=== PATIENT | female | born 1985 | race Caucasian/White ===

== ENCOUNTER 2018-08-13 21:26 | Outpatient (CLI) | payer MEDICAID ==
[2018-08-13] MEDS ORDERED: TERBUTALINE 1 ML (22:16)
[2018-08-13] MEDS: LACTATED RINGER'S 1,000 ML IV ×2 (22:31→23:02)
[2018-08-13] MEDS: TERBUTALINE 1 MG/ML INJ SC ×2 (22:32→23:24)
[2018-08-13 22:50] LABS: ADD UMIC YES; UR ASCORBIC ACID NEGATIVE (NEGATIVE); UR BACTERIA FEW /HPF (NONE SEEN); UR BILIRUBIN (Dip) NEGATIVE (NEGATIVE); UR BLOOD (Dip) NEGATIVE (NEGATIVE); UR CLARITY SLIGHTLY CLOUDY (CLEAR); UR COLOR YELLOW (YELLOW); UR GLUCOSE (Dip) NEGATIVE (NEGATIVE); UR KETONES (Dip) NEGATIVE (NEGATIVE); UR LEUKOCYTE ESTERASE (Dip) 1+ Leu/ul (NEGATIVE); UR MUCUS FEW /HPF (NONE SEEN); UR NITRITE (Dip) NEGATIVE (NEGATIVE); UR RBC 1 /HPF (0-5); UR SPECIFIC GRAVITY (Dip) 1.012 (1.003-1.030); UR SQUAMOUS EPITHELIAL CELL FEW /HPF (FEW); UR TOTAL PROTEIN (Dip) NEGATIVE (NEGATIVE); UR UROBILINOGEN (Dip) NEGATIVE (NEGATIVE); UR WBC 3 /HPF (0-5)
[2018-08-13 23:06] LABS: RUPTURE FETAL MEMBRANES NEGATIVE (NEGATIVE)
== END 2018-08-14 00:42 | disposition home or self-care (01) ==
LOC: OBT 21:26 → L-D 21:28
DX: O60.03 Preterm labor without delivery, third trimester (principal); Z3A.35 35 weeks gestation of pregnancy
CPT/HCPCS: 36415; 76815; 76818; 81001; 82962; 84112; 87086

== ENCOUNTER 2018-08-21 23:25 | Inpatient (IN) | payer MEDICAID ==
[2018-08-22 02:08] LABS: ADD UMIC YES; UR ASCORBIC ACID NEGATIVE (NEGATIVE); UR BACTERIA FEW /HPF (NONE SEEN); UR BILIRUBIN (Dip) NEGATIVE (NEGATIVE); UR BLOOD (Dip) NEGATIVE (NEGATIVE); UR CLARITY SLIGHTLY CLOUDY (CLEAR); UR COLOR YELLOW (YELLOW); UR GLUCOSE (Dip) NEGATIVE (NEGATIVE); UR KETONES (Dip) NEGATIVE (NEGATIVE); UR LEUKOCYTE ESTERASE (Dip) 3+ Leu/ul (NEGATIVE); UR NITRITE (Dip) NEGATIVE (NEGATIVE); UR RBC 2 /HPF (0-5); UR SPECIFIC GRAVITY (Dip) 1.013 (1.003-1.030); UR SQUAMOUS EPITHELIAL CELL FEW /HPF (FEW); UR TOTAL PROTEIN (Dip) NEGATIVE (NEGATIVE); UR UROBILINOGEN (Dip) NEGATIVE (NEGATIVE); UR WBC 20 /HPF (0-5)
[2018-08-22] MEDS: TERBUTALINE 1 MG/ML INJ SC (03:06)
[2018-08-22] MEDS: NIFEdipine 10 MG CAP PO (04:54)
[2018-08-22] MEDS: LACTATED RINGER'S 1,000 ML IV ×4 (04:55→20:14)
[2018-08-22] MEDS ORDERED: ACETAMINOPHEN 325 MG TAB (06:23)
[2018-08-22] MEDS ORDERED: MISOPROSTOL 200 MCG TAB PR (09:00)
[2018-08-22] MEDS ORDERED: METHYLERGONOVINE 0.2 MG INJ IM (09:00)
[2018-08-22] MEDS ORDERED: CARBOPROST 250 MCG INJ IM (09:00)
[2018-08-22] MEDS ORDERED: OXYTOCIN 30 UNITS/LR 500 ML IV ×3 (09:00)
[2018-08-22] MEDS ORDERED: LIDOCAINE 1% (MPF) 30 ML INJ INJ (09:00)
[2018-08-22 09:45] LABS: ADD MAN DIFF? NO
[2018-08-22 09:48] LABS: BASOPHILS % 0.4 % (0.0-2.0); EOSINOPHILS % 0.5 % (0.0-7.0); HEMATOCRIT 33.2 % (37.0-47.0); HEMOGLOBIN 10.9 g/dl (12.0-16.0); LYMPHOCYTES # 1.9 10^3/ul (0.8-2.9); LYMPHOCYTES % 22.9 % (15.0-51.0); MEAN CORPUSCULAR HEMOGLOBIN 29.4 pg (29.0-33.0); MEAN CORPUSCULAR HGB CONC 32.8 g/dl (32.0-37.0); MEAN CORPUSCULAR VOLUME 89.5 fl (82.0-101.0); MEAN PLATELET VOLUME 12.2 fl (7.4-10.4); MONOCYTE # 0.3 10^3/ul (0.3-0.9); MONOCYTES % 3.7 % (0.0-11.0); NEUTROPHIL # 5.9 10^3/ul (1.6-7.5); NEUTROPHILS % 71.9 % (39.0-77.0); PLATELET COUNT 157 10^3/UL (140-415); RED BLOOD COUNT 3.71 10^6/ul (4.20-5.40); RED CELL DISTRIBUTION WIDTH 14.4 % (11.5-14.5)
[2018-08-22 09:48] LABS: WHITE BLOOD COUNT 8.2 10^3/ul (4.8-10.8)
[2018-08-22 10:07] LABS: INR 0.89; PROTIME 12.1 Sec (11.9-14.9); PT RATIO 0.9
[2018-08-22] MEDS: ACETAMINOPHEN 325 MG TAB PO (10:12)
[2018-08-22] MEDS ORDERED: ACETAMINOPHEN 325 MG TAB PO (10:30)
[2018-08-22 19:33] LABS: RUPTURE FETAL MEMBRANES NEGATIVE (NEGATIVE)
[2018-08-22 21:57] LABS: RAPID PLASMA REAGIN NONREACTIVE (NR)
== END 2018-08-22 22:10 | disposition home or self-care (01) | DRG 833 ==
LOC: OBT 23:25 → L-D 23:25 → PP1 08-22 09:08
DX: O60.03 Preterm labor without delivery, third trimester (principal); Z3A.36 36 weeks gestation of pregnancy
CPT/HCPCS: 36415; 76815; 76818; 81001; 82962; 84112; 85025; 85610; 85730; 86592; 86850; 86900; 86901; 96360; 96361

== ENCOUNTER 2018-09-07 10:14 | Inpatient (IN) | payer MEDICAID ==
[2018-09-07] MEDS ORDERED: OXYTOCIN 30 UNITS/LR 500 ML IV ×3 (10:30)
[2018-09-07] MEDS ORDERED: BUTORPHANOL 1 MG INJ IV (10:30)
[2018-09-07] MEDS ORDERED: IBUPROFEN 600 MG TAB PO (10:30)
[2018-09-07] MEDS ORDERED: CARBOPROST 250 MCG INJ IM (10:30)
[2018-09-07] MEDS ORDERED: MISOPROSTOL 200 MCG TAB PR (10:30)
[2018-09-07] MEDS ORDERED: LIDOCAINE 1% (MPF) 30 ML INJ INJ (10:30)
[2018-09-07] MEDS: LACTATED RINGER'S 1,000 ML IV ×2 (10:51→17:52)
[2018-09-07 10:52] LABS: ADD MAN DIFF? NO
[2018-09-07 10:59] LABS: BASOPHILS % 0.6 % (0.0-2.0); EOSINOPHILS # 0.1 10^3/ul (0.0-0.5); EOSINOPHILS % 0.7 % (0.0-7.0); HEMATOCRIT 34.9 % (37.0-47.0); HEMOGLOBIN 11.5 g/dl (12.0-16.0); LYMPHOCYTES # 1.7 10^3/ul (0.8-2.9); MEAN CORPUSCULAR HEMOGLOBIN 28.6 pg (29.0-33.0); MEAN CORPUSCULAR VOLUME 86.8 fl (82.0-101.0); MEAN PLATELET VOLUME 12.4 fl (7.4-10.4); MONOCYTE # 0.3 10^3/ul (0.3-0.9); MONOCYTES % 3.7 % (0.0-11.0); NEUTROPHILS % 70.4 % (39.0-77.0); PLATELET COUNT 190 10^3/UL (140-415); RED BLOOD COUNT 4.02 10^6/ul (4.20-5.40); RED CELL DISTRIBUTION WIDTH 14.4 % (11.5-14.5)
[2018-09-07 11:19] LABS: INR 0.85; PROTIME 11.7 Sec (11.9-14.9); PT RATIO 0.9
[2018-09-07 11:20] LABS: PARTIAL THROMBOPLASTIN TIME 26.1 Sec (23.0-35.0)
[2018-09-07 11:21] LABS: GLUCOSE 126 mg/dl (70-220)
[2018-09-07] MEDS: OXYTOCIN 30 UNITS/LR 500 ML IV (14:07)
[2018-09-07 15:08] LABS: HEPATITIS B SURFACE ANTIGEN NEGATIVE (NEGATIVE)
[2018-09-07 18:49] LABS: RAPID PLASMA REAGIN NONREACTIVE (NR)
[2018-09-07] MEDS: DEXTROSE 5%-LR 1,000 ML IV (21:11)
[2018-09-08] MEDS: DEXTROSE 5%-LR 1,000 ML IV (04:53)
[2018-09-08] MEDS: BUTORPHANOL 2 MG INJ IV (06:00)
[2018-09-08] MEDS: MINERAL OIL LIGHT 10 ML VIAL TOP (08:30)
[2018-09-08] MEDS: LACTATED RINGER'S 1,000 ML IV* (09:03)
[2018-09-08] MEDS ORDERED: CARBOPROST 250 MCG INJ IM (09:30)
[2018-09-08] MEDS ORDERED: DIPHENHYDRAMINE 25 MG CAP PO (09:30)
[2018-09-08] MEDS ORDERED: MISOPROSTOL 200 MCG TAB PR (09:30)
[2018-09-08] MEDS ORDERED: DIBUCAINE 1% 30 GM OINT TOP (09:30)
[2018-09-08] MEDS ORDERED: MAGNESIUM HYDROXIDE 30ML CUP PO (09:30)
[2018-09-08] MEDS ORDERED: NA PHOSPHATE/BIPHOS 133 ML ENEMA PR (09:30)
[2018-09-08] MEDS ORDERED: SENNA/DOCUSATE NA (8.6MG/50MG) TAB PO (09:30)
[2018-09-08] MEDS ORDERED: HYDROCODONE/APAP (5/325) TAB PO ×2 (09:30)
[2018-09-08] MEDS ORDERED: ONDANSETRON 4 MG INJ IV (09:30)
[2018-09-08] MEDS ORDERED: DIPHENHYDRAMINE 50 MG INJ IV (09:30)
[2018-09-08] MEDS ORDERED: ONDANSETRON 4 MG TAB PO (09:30)
[2018-09-08] MEDS ORDERED: OXYTOCIN 30 UNITS/LR 500 ML IV (09:30)
[2018-09-08] MEDS: OXYTOCIN 30 UNITS/LR 500 ML IV ×2 (09:56)
[2018-09-08] MEDS: METHYLERGONOVINE 0.2 MG INJ IM (10:45)
[2018-09-08] MEDS: IBUPROFEN 600 MG TAB PO ×2 (12:22→17:18)
[2018-09-08] MEDS: BENZOCAINE 20% 56 ML SPRAY TOP (12:22)
[2018-09-08] MEDS: WITCH HAZEL/GLYCERIN PAD PR (12:22)
[2018-09-08] MEDS: LANOLIN HPA 1 PKT TOP (12:22)
[2018-09-08] MEDS: SENNA/DOCUSATE NA (8.6MG/50MG) TAB PO (21:21)
[2018-09-09] MEDS: IBUPROFEN 600 MG TAB PO ×5 (00:07→23:45)
[2018-09-09 08:26] LABS: ADD MAN DIFF? NO
[2018-09-09 08:28] LABS: BASOPHILS % 0.4 % (0.0-2.0); EOSINOPHILS # 0.1 10^3/ul (0.0-0.5); EOSINOPHILS % 1.3 % (0.0-7.0); HEMATOCRIT 29.4 % (37.0-47.0); HEMOGLOBIN 9.5 g/dl (12.0-16.0); LYMPHOCYTES # 2.2 10^3/ul (0.8-2.9); LYMPHOCYTES % 23.3 % (15.0-51.0); MEAN CORPUSCULAR HEMOGLOBIN 29.2 pg (29.0-33.0); MEAN CORPUSCULAR HGB CONC 32.3 g/dl (32.0-37.0); MEAN CORPUSCULAR VOLUME 90.5 fl (82.0-101.0); MEAN PLATELET VOLUME 12.4 fl (7.4-10.4); MONOCYTE # 0.4 10^3/ul (0.3-0.9); MONOCYTES % 4.7 % (0.0-11.0); NEUTROPHIL # 6.5 10^3/ul (1.6-7.5); NEUTROPHILS % 69.7 % (39.0-77.0); PLATELET COUNT 149 10^3/UL (140-415); RED BLOOD COUNT 3.25 10^6/ul (4.20-5.40); RED CELL DISTRIBUTION WIDTH 14.3 % (11.5-14.5)
[2018-09-09 08:28] LABS: WHITE BLOOD COUNT 9.3 10^3/ul (4.8-10.8)
[2018-09-09] MEDS: SENNA/DOCUSATE NA (8.6MG/50MG) TAB PO ×2 (08:29→20:55)
[2018-09-10] MEDS: IBUPROFEN 600 MG TAB PO ×2 (05:55→11:53)
[2018-09-10] MEDS: SENNA/DOCUSATE NA (8.6MG/50MG) TAB PO (08:55)
[2018-09-10] MEDS ORDERED: DIPHTH/TET/ACEL PERTUSS (ADULT) 0.5 ML VIAL IM* (09:00)
[2018-09-10] MEDS ORDERED: MEASLES,MUMPS,RUBELLA VACCINE INJ SC* (09:00)
[2018-09-10] MEDS ORDERED: VARICELLA VACCINE LIVE/PF 1,350 UNIT/0.5 ML ML SC* (09:00)
== END 2018-09-10 17:47 | disposition home or self-care (01) | DRG 807 ==
LOC: PP1 09-08 11:16 → L-D 10:14
PROVIDERS: Specialist
PROC: 10E0XZZ Delivery of Products of Conception, External Approach (ICD-10-PCS; principal; 2018-09-08)
DX: O24.420 Gestational diabetes mellitus in childbirth, diet controlled (principal); O90.81 Anemia of the puerperium; D64.9 Anemia, unspecified; Z37.0 Single live birth; Z3A.39 39 weeks gestation of pregnancy
CPT/HCPCS: 76815; 82947; 82962; 85025; 85610; 85730; 86592; 86850; 86900; 86901; 87340; 99464